=== PATIENT | female | born 1990 | race Caucasian/White ===

== ENCOUNTER 2021-04-27 22:58 | Emergency (ER) | payer OTHER ==
[~2021-04-27] VITALS: Ht 182.9 cm; Wt 75.7 kg
--- NOTE | 2021-04-27 23:18 | NUR ---
ASSUMED CARE OF PATIENT. PATIENT REPORTS SHE IS 7.5 WEEKS AND IS HAVING SOME BLEEDING WITH CRAMPING. VS STABLE. NO ACUTE DISTRESS NOTED. FAMILY AT BEDSIDE. WILL CONTINUE TO MONITOR.
[2021-04-28 00:02] LABS: ALANINE AMINOTRANSFERASE 22 U/L (12-78); ALBUMIN 3.7 g/dL (3.4-5.0); ANION GAP 7 mmol/L (5-15); CALCIUM 8.5 mg/dL (8.5-10.1); CHLORIDE 106 mmol/L (98-107); CREATININE 0.65 mg/dL (0.55-1.02)
[2021-04-28 00:08] LABS: BASOPHILS % (AUTO) 0 % (0-1); EOSINOPHILS % (AUTO) 1 % (1-7); LYMPHOCYTES % (AUTO) 27 % (22-44); MEAN CORPUSCULAR HEMOGLOBIN 33.1 pg (27.0-34.8); MEAN PLATELET VOLUME 9.5 fL (7.4-10.4); MONOCYTES % (AUTO) 10 % (2-9); NEUTROPHILS % (AUTO) 61 % (42-75); PLATELET COUNT 188 x10^3/uL (130-400); RED BLOOD COUNT 4.06 x10^6/uL (3.82-5.3); RED CELL DISTRIBUTION WIDTH 12.1 % (9.6-15.2)
[2021-04-28 00:14] LABS: MICROSCOPIC NOT IND
[2021-04-28 00:21] LABS: ALKALINE PHOSPHATASE 61 U/L (45-117); BILIRUBIN,TOTAL 0.2 mg/dL (0.2-1.0); TOTAL PROTEIN 6.7 g/dL (6.4-8.2)
--- NOTE | 2021-04-28 00:45 | NUR ---
REPORT FROM KASSANDRA RN, PT CARE TRANSFERRED AT THIS TIME. Patient is resting comfortably in bed. Bed in lowest, rails engaged, call light on lap. Vital Signs within normal limits. WCTM.
--- NOTE | 2021-04-28 00:54 | NUR ---
REPORT GIVEN TO CLAUDIA GIPSON
--- NOTE | 2021-04-28 00:54 | NUR ---
PT RESTING IN ROOM. VS STABLE. NO ACUTE DISTRESS NOTED.
[2021-04-28 01:37] VITALS: BP 114/74
--- NOTE | 2021-04-28 01:49 | NUR ---
Patient given discharge instructions and they have confirmed that they understand the instructions. Patient ambulatory with steady gait. NAD, all questions answered appropriately, denies additional needs at this time. No personal belongings left in room after discharge.
== END 2021-04-28 01:51 | disposition home or self-care (01) ==
LOC: ED 04-28 00:24
DX: O20.0 Threatened abortion (principal); Z3A.01 Less than 8 weeks gestation of pregnancy
CPT/HCPCS: 36415; 76801; 80053; 81003; 84702; 85025; 86901; 99284